=== PATIENT | female | born 1985 | race Two or more races ===

== ENCOUNTER 2023-10-23 17:58 | Emergency (ER) | payer MEDICAID ==
[~2023-10-23] VITALS: Ht 154.9 cm; Wt 81.6 kg
[2023-10-23] MEDS ORDERED: KETOROLAC TROMETHAMINE 15 MG/ML VIAL ONE (19:10)
[2023-10-23] MEDS ORDERED: HYDROCODONE/APAP 5/325MG TABLET ONE (19:11)
[2023-10-23] MEDS: KETOROLAC TROMETHAMINE 15 MG/ML VIAL IM ONE (19:17)
[2023-10-23] MEDS: HYDROCODONE/APAP 5/325MG TABLET PO ONE (19:20)
[2023-10-23] MEDS ORDERED: LIDOCAINE 5% (PATCH) 1 EA PATCH TP ONE (21:53)
[2023-10-23] MEDS: LIDOCAINE 5% (PATCH) 1 EA PATCH TP ONE (21:55)
[2023-10-23] MEDS ORDERED: MORPHINE SULFATE INJ 2 MG/ML DISP.SYRIN ONE (22:15)
[2023-10-23] MEDS: MORPHINE SULFATE INJ 2 MG/ML DISP.SYRIN IM ONE (22:19)
[2023-10-23] MEDS ORDERED: IBUP-1957 PO (22:54)
[2023-10-23] MEDS ORDERED: HYDR-4303 PO ×2 (22:54→23:01)
[2023-10-23] MEDS ORDERED: ACET-2605 PO (22:54)
[2023-10-23] MEDS ORDERED: DOCU-141 PO (22:54)
[2023-10-23 23:30] VITALS: BP 112/67; TEMP 98.1; O2SAT 97
== END 2023-10-23 23:30 | disposition home or self-care (01) ==
LOC: ER 18:01
DX: M54.50 Low back pain, unspecified (principal); M25.552 Pain in left hip; M25.562 Pain in left knee; W11.XXXA Fall on and from ladder, initial encounter; Y93.89 Activity, other specified; Y92.89 Other specified places as the place of occurrence of the external cause; Y99.8 Other external cause status
CPT/HCPCS: 72131; 73503; 73564; J2270; J1885; 73502